=== PATIENT | female | born 1985 | race Caucasian/White ===

== ENCOUNTER → 2024-07-22 08:02 | Outpatient (REF) | payer BC, SELFPAY | LOC: HWRAD 08:02 | PROVIDERS: ATTENDING PHYSICIAN Internal Medicine | DX: R59.0 Localized enlarged lymph nodes (principal) | CPT/HCPCS: 76882 ==

== ENCOUNTER → 2024-07-29 12:42 | Outpatient (REF) | payer BC, SELFPAY ==
[2024-07-29 13:15] VITALS: BP 133/83; BP_SYST 87
[2024-07-29 14:00] VITALS: BP 120/78; BP_SYST 78
== END ==
LOC: RADI 12:42
PROVIDERS: ATTENDING PHYSICIAN Internal Medicine
DX: R59.0 Localized enlarged lymph nodes (principal)
CPT/HCPCS: 88305; 38505; 76942; 88333